=== PATIENT | female | born 1985 | race Caucasian/White ===

== ENCOUNTER 2017-05-13 16:25 | Emergency (ER) | payer OTHER ==
[~2017-05-13] VITALS: Ht 162.6 cm; Wt 52.3 kg
--- NOTE | 2017-05-13 19:50 | REPUSA ---
Clinical history: Pain. Findings: Real-time transabdominal and transvaginal ultrasound images of the pelvis were obtained. An anteverted uterus is noted, measuring 8.1 x 4.5 x 5.1 cm. The uterus demonstrates normal echotexture and echogenicity. The endometrial stripe is within normal limits. IUD is in place. The right ovary m easures 2.9 x 1.6 x 2.4 cm. The left ovary measures 2.6 x 1.6 x 1.8 cm. No adnexal masses are seen. C olor Doppler flow is seen within both ovaries. There is no evidence of free fluid. Impression: Unremarkable ultrasound examination of the pelvis. IUD is in satisfactory position.
[2017-05-13] MEDS ORDERED: FLAG500T PO (20:29)
[2017-05-13] MEDS ORDERED: metroNIDAZOLE (FLAGYL) 500 MG TAB PO ONE (20:30)
[2017-05-13] MEDS ORDERED: cefTRIAXone SOD 250 MG VIAL (J0696) IM ONE (20:30)
[2017-05-13] MEDS ORDERED: AZITHROMYCIN 250 MG TAB PO ONE (20:30)
[2017-05-13 20:45] VITALS: BP 103/61
== END 2017-05-13 21:09 | disposition left against medical advice (07) ==
LOC: M ED 16:25
DX: N89.8 Other specified noninflammatory disorders of vagina (principal); R10.2 Pelvic and perineal pain; Z97.5 Presence of (intrauterine) contraceptive device

== ENCOUNTER → 2017-09-17 | Outpatient (REF) | payer OTHER ==
[2017-09-17 23:39] LABS: INFLUENZA A AMPLIFICATION NEGATIVE (NEGATIVE); INFLUENZA B AMPLIFICATION NEGATIVE (NEGATIVE); RSV AMPLIFICATION NEGATIVE (NEGATIVE)
== END ==
LOC: M LAB REF 21:53
DX: J11.1 Influenza due to unidentified influenza virus with other respiratory manifestations (principal)

== ENCOUNTER → 2018-03-20 | Outpatient (REF) | payer BC ==
[2018-03-20 15:46] LABS: CONTROL LINE HCG INT CTR LINE PRESENT; HCG, SERUM QUALITATIVE NEGATIVE (NEGATIVE)
[2018-03-20 22:03] LABS: IMMUNOGLOBULIN A 90.7 MG/DL (70-400)
[2018-03-25 00:06] LABS: ANCA-ATYPICAL <1:20 titer (Neg:<1:20); ANTI-SACCHAROMYCES CEREV. IgA <20.0 Units (0.0-24.9); ANTI-SACCHAROMYCES CEREV. IgG <20.0 Units (0.0-24.9); CYTOPLASMIC NEUTROP AB ANCA-C <1:20 titer (Neg:<1:20); ENDOMYSIAL ABY IgA Negative (Negative); PERINUCLEAR AB ANCA-P <1:20 titer (Neg:<1:20); TISSUE TRANSGLUTAMINASE IgA <2 U/mL (0-3); TISSUE TRANSGLUTAMINASE IgG <2 U/mL (0-5)
== END ==
LOC: M LABDRAW1 10:57
DX: R10.31 Right lower quadrant pain (principal); R11.2 Nausea with vomiting, unspecified; R14.3 Flatulence; R93.3 Abnormal findings on diagnostic imaging of other parts of digestive tract
CPT/HCPCS: 84703

== ENCOUNTER → 2018-05-29 | Outpatient (CLI) | payer BC | LOC: M WUC 09:52 | DX: S90.32XA Contusion of left foot, initial encounter (principal) | CPT/HCPCS: 73630 ==

== ENCOUNTER → 2018-09-12 | Outpatient (REF) | payer BC ==
[~2018-09-12] MED LIST: FLAG500T PO
[2018-09-12 21:02] LABS: ALBUMIN 4.4 GM/DL (3.2-5.2); BILIRUBIN,DIRECT 0.2 MG/DL (0.0-0.2); BILIRUBIN,TOTAL 0.7 MG/DL (0.2-1.0)
== END ==
LOC: M LABDRAW1 15:45
PROVIDERS: ATTEND Physician Assistant
DX: K76.9 Liver disease, unspecified (principal)

== ENCOUNTER → 2019-01-23 | Outpatient (REF) | payer OTHER ==
[2019-01-26 00:08] LABS: BORDETELLA PERTUSSIS ABY IgA <1.0 index (0.0-0.9); BORDETELLA PERTUSSIS ABY IgG 3.69 index (0.00-0.94); BORDETELLA PERTUSSIS ABY IgM 2.2 index (0.0-0.9); DIPTHERIA ANTIBODY TITER 0.67 IU/mL (<0.10); EBV AB TO NUCLEAR ANTIGEN >600.0 U/mL (0.0-17.9); EBV VIRAL CAPSID AG IgM <36.0 U/mL (0.0-35.9); IgG SERUM (part of Subclasses) 662 mg/dL (700-1600); IgG Subclass 1 399 mg/dL (248-810); IgG Subclass 2 167 mg/dL (130-555); IgG Subclass 3 66 mg/dL (15-102); IgG Subclass 4 14 mg/dL (2-96)
== END ==
LOC: M LABDRAW1 08:53
PROVIDERS: ATTEND Allergy & Immunology
DX: D80.1 Nonfamilial hypogammaglobulinemia (principal)

== ENCOUNTER → 2019-03-27 | Outpatient (REF) | payer OTHER | LOC: M LABDRAW1 15:33 | PROVIDERS: ATTEND Allergy & Immunology | DX: D80.1 Nonfamilial hypogammaglobulinemia (principal) ==